=== PATIENT | female | born 1990 | race Caucasian/White ===

== ENCOUNTER 2021-03-11 17:50 | Outpatient (CLI) | payer OTHER, SELFPAY ==
--- NOTE | ~2021-03-11 | US_ITS ---
EXAMINATION: US pelvic complete DATE: 03/11/2021 18:08 INDICATION: Missing IUD string TECHNIQUE: Multiple transabdominal sonographic images of the pelvis were obtained. COMPARISON: None. FINDINGS: The uterus measures 4.9 x 1.9 x 3.9 cm. The endometrial complex measures 4-5 mm in thickness. Linear echogenic and shadowing IUD within the endometrial canal. The right ovary measures 3.7 x 2.3 x 1.9 c m. The left ovary measures 3.2 x 2.0 x 2.6 cm. There are few subcentimeter anechoic follicles in both ovaries. Vascular flow identified with arterial waveforms in both ovaries on color Doppler. There is no free fluid in the pelvis. IMPRESSION: 1. IUD within the endometrial canal. Otherwise normal pelvic ultrasound. Reviewed, dictated and finalized at location A.
== END 2021-03-11 17:51 ==
LOC: MICIMG 17:51
PROVIDERS: Visit Provider Nurse Practitioner
DX: Z30.431 Encounter for routine checking of intrauterine contraceptive device (principal)
CPT/HCPCS: 76856